=== PATIENT | male | born 1935 | race Caucasian/White ===

== ENCOUNTER 2021-10-01 14:17 | Emergency (ER) | payer MEDICARE, OTHER ==
[~2021-10-01] VITALS: Ht 180.3 cm; Wt 127.0 kg
[2021-10-01] MEDS ORDERED: SODIUM CHLORIDE 0.9% 500ML 500 ML IV STA (15:00)
[2021-10-01] MEDS ORDERED: ONDANSETRON HCL INJ 2MG/ML 2ML 2 MG/ML VIAL IV STA (15:00)
[2021-10-01 15:45] LABS: BASOPHILS # (AUTO) 0.1 (0.0-0.1); BASOPHILS % 0.5 % (0.0-1.0); EOSINOPHILS # (AUTO) 0.4 (0.0-0.4); EOSINOPHILS % 2.8 % (0.0-6.0); HEMATOCRIT 43.8 % (38.2-49.6); HEMOGLOBIN 13.6 g/dL (14.0-18.0); LYMPHOCYTES # (AUTO) 2.1 (1.0-3.2); MEAN CORPUSCULAR HEMOGLOBIN 28.6 pg (28-32); MEAN CORPUSCULAR HGB CONC 31.1 g/dL (31-35); MONOCYTES # (AUTO) 1.2 (0.2-0.8); MONOCYTES % 8.5 % (4.4-11.3); NEUTROPHILS % 72.7 % (38.7-80.0); PLATELET COUNT 311 x10e3/uL (140-360); RED BLOOD COUNT 4.76 x10e6/uL (4.3-5.7); RED CELL DISTRIBUTION WIDTH 13.9 % (11.7-14.4)
[2021-10-01 15:52] LABS: INR 0.95; PARTIAL THROMBOPLASTIN TIME 33.6 seconds (23.8-35.5); PROTHROMBIN TIME 13.6 seconds (11.9-14.5)
[2021-10-01 16:02] LABS: ALBUMIN 3.6 g/dL (3.5-5.0); ALBUMIN/GLOBULIN RATIO 0.9 (0.8-2.0); ANION GAP 14.9 mmol/L (8-16); CALCIUM 9.3 mg/dL (8.4-10.2); CREATININE, SERUM 1.02 mg/dL (0.72-1.25); POTASSIUM 4.9 mmol/L (3.5-5.1)
[2021-10-01 16:12] LABS: CREATINE KINASE MB 1.4 ng/mL (0-5.0)
[2021-10-01 16:22] LABS: CLARITY,URINE SL CLOUDY (CLEAR); COLOR,URINE YELLOW (YELLOW); KETONES,URINE NEGATIVE (NEGATIVE); LEUKOCYTE ESTERASE ,URINE MODERATE (NEGATIVE); NITRITE,URINE NEGATIVE (NEGATIVE); PROTEIN,URINE DIPSTICK NEGATIVE (NEGATIVE); URINE UROBILINOGEN 0.2 mg/dL (0.2 - 1)
[2021-10-01 16:34] LABS: BACTERIA,URINE MODERATE /HPF; EPITHELIAL CELLS,URINE FEW /LPF; RBC,URINE 0-5 /HPF (0-5)
[2021-10-01] MEDS ORDERED: CEFTRIAXONE 1 GM VIAL IM ONE (17:00)
[2021-10-01] MEDS ORDERED: IOPAMIDOL 370 MG/ML 100 ML INFUS..BTL INJ ONE (19:46)
[2021-10-01] MEDS ORDERED: SODIUM CHLORIDE 0.9% 100 ML ONE (19:46)
== END 2021-10-01 18:54 | disposition home or self-care (01) ==
LOC: ER 14:43
DX: N39.0 Urinary tract infection, site not specified (principal); R19.7 Diarrhea, unspecified
CPT/HCPCS: 36415; 71045; 74174; 80053; 81001; 82550; 82553; 83690; 83880; 84484; 85025; 85610; 85730; 86850; 86900; 87086; 93005; 99284; J0696; J2405; J7040; J7050; Q9967